=== PATIENT | female | born 1980 | race Caucasian/White ===

== ENCOUNTER 2020-02-19 07:53 | Emergency (ER) | payer OTHER ==
[2020-02-19 07:59] VITALS: BP 143/95; PULSE 83
--- NOTE | 2020-02-19 08:49 | EDM.PDOC ---
ED HPI GENERAL MEDICAL PROBLEM - General Chief Complaint: General Stated Complaint: hernia with left back of leg pain/tingling Time Seen by Provider: 02/19/20 08:30 Source of Information: Reports: Patient History Limitations: Reports: No Limitations - History of Present Illness INITIAL COMMENTS - FREE TEXT/NARRATIVE: She presents to the emergency department complaining of tingling in the back of her left leg, mainly in the thigh. At times extends beyond the knee. She does feel some stiffness and aching pain in the back of the left leg as well. She reports the leg feels heavy compared to the right side. No pain in her lower back. Symptoms started yesterday. No injury that she is aware of. No recent activity change. She does have a left lower abdominal hernia which will require repair, but she is unable to do that now since it is felt to be elective. No fever or chills. No dizziness or lightheadedness. No chest pain or tightness. Left Posterior Thigh Pain Score (Numeric/FACES): 3 - Related Data Allergies Allergy/AdvReac Type Severity Reaction Status Date / Time No Known Allergies Allergy Verified 02/19/20 10:30 Home Meds: Home Meds Albuterol [Take Home: Albuterol 18 GM, 1 INH Pack] 2 puff INH Q4HR PRN 02/19/20 [History] Past Medical History Gastrointestinal History: Reports: Other (See Below) Other Gastrointestinal History: LLQ hernia - Past Surgical History HEENT Surgical History: Reports: Tonsillectomy, Other (See Below) Other HEENT Surgeries/Procedures: wisdom teeth extraction Social & Family History - Tobacco Use Smoking Status *Q: Never Smoker - Recreational Drug Use Recreational Drug Use: No ED ROS GENERAL - Review of Systems Review Of Systems: See Below Constitutional: Denies: Fever, Chills HEENT: Denies: Eye Pain, Hearing Loss, Nose Pain, Sinus Problem, Throat Pain Respiratory: Denies: Shortness of Breath, Cough Cardiovascular: Denies: Chest Pain, Lightheadedness, Palpitations Endocrine: Denies: Fatigue GI/Abdominal: Reports: Abdominal Pain (Mild pain in the left lower quadrant.). Denies: Diarrhea, Nausea, Vomiting : Denies: Dysuria, Frequency, Urgency Musculoskeletal: Reports: Leg Pain. Denies: Back Pain Skin: Denies: Rash Neurological: Reports: Numbness, Tingling. Denies: Confusion, Dizziness, Headache Psychiatric: Denies: Agitation, Anxiety ED EXAM, GENERAL - Physical Exam Exam: See Below Exam Limited By: No Limitations General Appearance: Alert, WD/WN, No Apparent Distress Respiratory/Chest: Lungs Clear, Normal Breath Sounds, No Accessory Muscle Use Cardiovascular: Regular Rate, Rhythm, No Murmur GI/Abdominal: Normal Bowel Sounds, Soft, No Organomegaly, No Mass, Tender (Mild tenderness in the left lower quadrant.) Back Exam: Normal Inspection, Full Range of Motion (Mild pain and forward flexion.), Muscle Spasm (Mild diffuse tightness in the left paralumbar muscle), Other (She does give pain with left straight leg raise. Normal toe lift and heel walk.) Extremities: Normal Inspection, Normal Range of Motion, Non-Tender, No Pedal Edema Neurological: Alert, Oriented Skin Exam: Warm, Dry Course - Vital Signs Last Recorded V/S: Last Vital Signs Temp 36.6 C 02/19/20 07:58 Pulse 83 02/19/20 07:58 Resp 16 02/19/20 07:58 BP 143/95 H 02/19/20 07:58 Pulse Ox 99 02/19/20 07:58 - Orders/Labs/Meds Orders: Active Orders 24 hr Category Date Time Status Lumbar Spine 2 or 3V [CR] Stat Exams 02/19/20 08:10 Taken Departure - Departure Time of Disposition: 08:46 Disposition: Home, Self-Care 01 Condition: Good Clinical Impression: Acute left lumbar radiculopathy - Discharge Information *PRESCRIPTION DRUG MONITORING PROGRAM REVIEWED*: No *COPY OF PRESCRIPTION DRUG MONITORING REPORT IN PATIENT HANNAH: No Instructions: Lumbosacral Radiculopathy Referrals: PCP,None [Primary Care Provider] - Forms: ED Department Discharge Additional Instructions: Lumbar stretches at least twice daily. Ice the lower back for 15 minutes 3-4 times daily. Cyclobenzaprine 10 mg. 1 tablet 3 times daily for 5 days. Aleve 2 tablets twice daily for 5 days. Take with food. Follow-up in clinic if not improving over the next week. Sepsis Event Note - Evaluation Sepsis Screening Result: No Definite Risk - Focused Exam Date Exam was Performed: 02/20/20 Time Exam was Performed: 00:21 - Problem List Review Problem List Initiated/Reviewed/Updated: Yes - My Orders Last 24 Hours: My Active Orders 02/19/20 08:10 Lumbar Spine 2 or 3V [CR] Stat - Assessment/Plan Last 24 Hours: My Active Orders 02/19/20 08:10 Lumbar Spine 2 or 3V [CR] Stat Plan: Discussed findings and treatment options. No indication that the numbness is related to her abdominal hernia. Lumbar stretches at least twice daily. Ice the lower back for 15 minutes 3-4 times daily. Cyclobenzaprine 10 mg. 1 tablet 3 times daily for 5 days. Aleve 2 tablets twice daily for 5 days. Take with food. Follow-up in clinic if not improving over the next week.
== END 2020-02-19 09:00 | disposition home or self-care (01) ==
LOC: LL.ED 07:53
DX: M54.16 Radiculopathy, lumbar region (principal)
CPT/HCPCS: 72100; 99283-25

== ENCOUNTER 2020-02-28 05:40 | Observation (INO) | payer OTHER ==
[2020-02-28] MEDS ORDERED: Sodium Chloride 0.9% 10 ML Syringe FLUSH PRN ×2 (06:23→08:07)
[2020-02-28] MEDS ORDERED: Famotidine 20 MG/2 ML SDV IVPUSH ONE (06:23)
--- NOTE | 2020-02-28 06:23 | EDM.PDOC ---
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 (4) Mixed anxiety depressive disorder SNOMED Code(s): 549441356 Code(s): F41.8 - OTHER SPECIFIED ANXIETY DISORDERS Status: Chronic Priority: Medium Current Visit: Yes Onset Date: ~02/28/20 Annotation/ Comment:: Moderate anxious affect based on today's exam with no current medical therapy. Observe for now. Note history of tension headaches. - Problem List Review Problem List Initiated/Reviewed/Updated: Yes - My Orders Last 24 Hours: My Active Orders 02/28/20 06:23 Cardiac Monitoring [RC] . DIRECTED EKG Documentation Completion [RC] ASDIRECTED Oxygen Therapy, ED [RC] PRN Peripheral IV Care [RC] . DIRECTED Pulse Oximetry [RC] CONTINUOUS Up With Assistance [RC] PFP Vital Signs [RC] PFP Chest 1V Frontal [CR] Stat Sodium Chloride 0.9% [Saline Flush] 10 ml FLUSH ASDIRECTED PRN Obtain Past Medical Record [OM.PC] Urgent Peripheral IV Insertion Adult [OM.PC] Stat Resuscitation Status Stat EKG 12 Lead [EK] Stat 02/28/20 Breakfast Nothing per Oral Now Diet [DIET] - Assessment/Plan Admission H&P: Please use this note as an admission H&P Last 24 Hours: My Active Orders 02/28/20 06:23 Cardiac Monitoring [RC] . DIRECTED EKG Documentation Completion [RC] ASDIRECTED Oxygen Therapy, ED [RC] PRN Peripheral IV Care [RC] . DIRECTED Pulse Oximetry [RC] CONTINUOUS Up With Assistance [RC] PFP Vital Signs [RC] PFP Chest 1V Frontal [CR] Stat Sodium Chloride 0.9% [Saline Flush] 10 ml FLUSH ASDIRECTED PRN Obtain Past Medical Record [OM.PC] Urgent Peripheral IV Insertion Adult [OM.PC] Stat Resuscitation Status Stat EKG 12 Lead [EK] Stat 02/28/20 Breakfast Nothing per Oral Now Diet [DIET] Assessment:: As above Plan: As above. Extensive precautions were given to the patient, who is in agreement with the treatment plan. The patient's condition is stable enough for observation status and general supervision.
[2020-02-28 07:19] LABS: HEMOGLOBIN A1C 5.3 % (4.3-5.7)
[2020-02-28 07:28] LABS: PTT,PARTIAL THROMBOPLSTIN TIME 23.4 SEC (24.5-32.8)
[2020-02-28 07:45] LABS: CHLORIDE,CL 104 mmol/L (98-107); SODIUM,NA 140 mmol/L (136-145)
[2020-02-28] MEDS ORDERED: NORETHINDRONE PO SCH (08:04)
[2020-02-28] MEDS ORDERED: Temazepam 15 MG Cap PO PRN (08:07)
[2020-02-28] MEDS ORDERED: Acetaminophen 325 MG Tab PO PRN (08:07)
[2020-02-29 07:41] LABS: CHLORIDE,CL 106 mmol/L (98-107); SODIUM,NA 141 mmol/L (136-145)
--- NOTE | 2020-02-29 09:28 | PCM.DCSUM1 ---
Discharge Summary - Hospital Course Brief History: Admitted to observation due to complaints of intermittent tachycardia/SOB. Serial troponins. Cardiac monitoring. Diagnosis: Stroke: No - Discharge Data Discharge Date: 02/29/20 Discharge Disposition: Home, Self-Care 01 Condition: Stable - Referral to Home Health Primary Care Physician: Natalya Perry PA-C - Discharge Diagnosis/Problem(s) (1) Tachycardia SNOMED Code(s): 7355908 ICD Code: R00.0 - TACHYCARDIA, UNSPECIFIED Status: Acute Priority: High Current Visit: Yes Onset Date: ~02/23/20 Problem Details: Complaint of intermittent elevated/pounding heart rate with associated SOB over last few days. Accomanied by diaphoresis/chills prior to coming to ER. Secondary to frequency of arrhythmia and duration of her symptoms patient placed in observation status with initiation of standard rule out [place] orders. Serial troponins negative. Unremarkable telemetry. No recurrence of symptoms noted during stay. Patient was advised to decrease her caffeine intake and avoid decongestants. Consider viral etiology given chills as illness can also be a cause of elevated heart rate. Does not appear to be associated with any feeling of increased anxiety per patient, thus less likely related to panic disorder. Patient is being set up for an event monitor by [facility] to more further rule out cardiac pathology. May need referral to Cardiology depending on clinical course (2) Allergic rhinitis SNOMED Code(s): 38846279 ICD Code: J30.9 - ALLERGIC RHINITIS, UNSPECIFIED Status: Chronic Priority : Medium Current Visit: Yes Problem Details: Note recent OTC preparations. Hx bronchitis last November and given inhaler for this. Patient did use this inhaler several times for her sensation of SOB this past week and did feel that it gave her improvement. Qualifiers: Allergic rhinitis trigger: pollen Allergic rhinitis seasonality: seasonal Qualified Code(s): J30.1 - Allergic rhinitis due to pollen (3) Asthma SNOMED Code(s): 423666443 ICD Code: J45.909 - UNSPECIFIED ASTHMA, UNCOMPLICATED Status: Chronic Priority: Medium Current Visit: Yes Problem Details: Reactive airway disease as above. Qualifiers: Asthma severity: mild Asthma persistence: intermittent Asthma complication type: uncomplicated Qualified Code(s): J45.20 - Mild intermittent asthma, uncomplicated (4) Mixed anxiety depressive disorder SNOMED Code(s): 536553413 ICD Code: F41.8 - OTHER SPECIFIED ANXIETY DISORDERS Status: Chronic Priority: Medium Current Visit: Yes Onset Date: ~02/28/20 Problem Details : Moderate anxious affect based on ER exam. Denies panic/feelings of anxiety accompanying her episodes of elevated heart rate/SOB. - Patient Summary/Data Recommended Follow-up Testing/Procedures: Cardiac event monitor through [facility]. Covid-19 testing today Hospital Course: Unremarkable hospital course. Negative troponins. No recurrence of symptoms that led her to present to ER. Given Restoril last night and she reports having first good night's sleep in 5 days. Had insomnia that accompanied the tachycardic/SOB over the previous 4 nights. No obvious URI complaints such as sore throat/congestion/cough. No fevers. No GI changes. Cannot rule out illness such as virus causing the pattern of tachycardia/SOB complaints. She did have episode of feeling hot/chilled/sweaty. Also cannot rule out allergies contributing as she does have reasonably significant seasonal and mold allergies per self report. Will test her for Covid 19 prior to discharge. She is to self quarantine at home while awaiting results. [facility] clinic is setting up patient for Holter/event monitor to more closely evaluate tachycardia complaint. May need Cardiology referral depending on symptoms/ clinical course. Precautions reviewed with patient. Differential diagnoses reviewed with patient. She is agreeable with plan. OK to discharge home. - Patient Instructions Diet: Usual Diet as Tolerated Activity: As Tolerated Showering/Bathing: May Shower Other/Special Instructions: Observe for recurrence of symptoms/new symptoms. Follow up as needed if you have problems. Otherwise quarantine at home while we are waiting for Covid-[address] [facility] will be sending you the cardiac event monitor as we discussed to more closely evaluate you heart rate complaints. Follow up closely with them until these symptos get sorted out. - Discharge Plan *PRESCRIPTION DRUG MONITORING PROGRAM REVIEWED*: Not Applicable *COPY OF PRESCRIPTION DRUG MONITORING REPORT IN PATIENT HANNAH: Not Applicable Home Medications: Home Meds Albuterol [Take Home: Albuterol 18 GM, 1 INH Pack] 2 puff INH Q4HR PRN 02/19/20 [History] Cranberry Fruit Extract [Cranberry] 500 mg PO DAILY 02/28/20 [History] Multivitamin [Multi-Vitamin Daily] 1 each PO DAILY 02/28/20 [History] Naproxen Sodium [Aleve] 220 mg PO ASDIRECTED PRN 02/28/20 [History] Norethindrone 1 tab PO DAILY 02/28/20 [History] Forms: ED Department Discharge Referrals: Natalya Perry PA-C [Primary Care Provider] - - Discharge Summary/Plan Comment DC Time >30 min.: No - General Info Date of Service: 02/29/20 Admission Dx/Problem (Free Text: Intermittent tachycardia/SOB Subjective Update: Patient feels back to usual self today. Functional Status: Reports: Pain Controlled, Tolerating Diet, Ambulating, Urinating. Denies: New Symptoms Numeric/FACES Score: 0 - Review of Systems General: Reports: No Symptoms HEENT: Reports: No Symptoms Pulmonary: Reports: No Symptoms Cardiovascular: Reports: No Symptoms Gastrointestinal: Reports: No Symptoms Genitourinary: Reports: No Symptoms Musculoskeletal: Reports: No Symptoms (no acute changes from baseline) Skin: Reports: No Symptoms Neurological: Reports: No Symptoms Psychiatric: Reports: No Symptoms - Patient Data Vitals - Most Recent: Last Vital Signs Temp 36.5 C 02/29/20 07:22 Pulse 85 02/29/20 07:22 Resp 16 02/29/20 07:22 BP 109/69 02/29/20 07:22 Pulse Ox 99 02/29/20 07:22 Weight - Most Recent: 80.603 kg I&O - Last 24 hours: Intake & Output 02/28/20 02/29/20 02/29/20 22:59 06:59 14:59 Intake Total 970 300 200 Output Total 200 200 Balance 770 100 200 Lab Results - Last 24 hrs: Laboratory Results - last 24 hr 02/28/20 02/28/20 02/29/20 Range/Units 11:55 17:33 07:11 WBC 6.2 (4.0-10.2) K/uL RBC 4.41 (3.77-5.09) M/uL Hgb 12.8 (11.7-15.5) g/dL Hct 38.6 (34.0-46.0) % MCV 87.5 (84.0-98.0) fL MCH 29.0 (28.2-33.3) pg MCHC 33.2 (31.7-36.0) g/dL RDW 14.9 H (11.2-14.1) % Plt Count 274 (150-350) K/uL Neut % (Auto) 53.7 (45.0-80.0) % Lymph % (Auto) 33.8 (10.0-50.0) % [place] % (Auto) 9.9 (2.0-14.0) % Eos % (Auto) 2.1 (0.0-5.0) % Baso % (Auto) 0.5 (0.0-2.0) % Neut # (Auto) 3.30 (1.40-7.00) K/uL Lymph # (Auto) 2.08 (0.50-3.50) K/uL [place] # (Auto) 0.61 (0.00-1.00) K/uL Eos # (Auto) 0.13 (0.00-0.50) K/uL Baso # (Auto) 0.03 (0.00-0.20) K/uL Sodium (136-145) mmol/L Potassium (3.5-5.1) mmol/L Chloride (98-107) mmol/L Carbon Dioxide (21.0-32.0) mmol/L BUN (7-18) mg/dL Creatinine (0.51-1.17) mg/dL Est Cr Clr Drug Dosing mL/min Estimated GFR (MDRD) mL/min Glucose (74-106) mg/dL Calcium (8.5-10.1) mg/dL Total Bilirubin (0.2-1.0) mg/dL AST (15-37) U/L ALT (12-78) U/L Alkaline Phosphatase (46-116) IU/L Creatine Kinase 95 92 (26-308) U/L Creatine Kinase Index 0.5 0.3 (0.0-2.5) % CK-MB (CK-2) 0.50 0.30 (0.00-3.60) ng/mL Troponin I 0.000 0.000 (0.000-0.056) ng/mL Total Protein (6.4-8.2) g/dL Albumin (3.4-5.0) g/dL 02/29/20 Range/Units 07:11 WBC (4.0-10.2) K/uL RBC (3.77-5.09) M/uL Hgb (11.7-15.5) g/dL Hct (34.0-46.0) % MCV (84.0-98.0) fL MCH (28.2-33.3) pg MCHC (31.7-36.0) g/dL RDW (11.2-14.1) % Plt Count (150-350) K/uL Neut % (Auto) (45.0-80.0) % Lymph % (Auto) (10.0-50.0) % [place] % (Auto) (2.0-14.0) % Eos % (Auto) (0.0-5.0) % Baso % (Auto) (0.0-2.0) % Neut # (Auto) (1.40-7.00) K/uL Lymph # (Auto) (0.50-3.50) K/uL [place] # (Auto) (0.00-1.00) K/uL Eos # (Auto) (0.00-0.50) K/uL Baso # (Auto) (0.00-0.20) K/uL Sodium 141 (136-145) mmol/L Potassium 3.8 (3.5-5.1) mmol/L Chloride 106 (98-107) mmol/L Carbon Dioxide 25.8 (21.0-32.0) mmol/L BUN 9 (7-18) mg/dL Creatinine 0.68 (0.51-1.17) mg/dL Est Cr Clr Drug Dosing 106.94 mL/min Estimated GFR (MDRD) > 60 mL/min Glucose 110 H (74-106) mg/dL Calcium 8.6 (8.5-10.1) mg/dL Total Bilirubin 0.6 (0.2-1.0) mg/dL AST 11 L (15-37) U/L ALT 23 (12-78) U/L Alkaline Phosphatase 74 (46-116) IU/L Creatine Kinase 76 (26-308) U/L Creatine Kinase Index 0.5 (0.0-2.5) % CK-MB (CK-2) 0.40 (0.00-3.60) ng/mL Troponin I 0.000 (0.000-0.056) ng/mL Total Protein 6.8 (6.4-8.2) g/dL Albumin 3.5 (3.4-5.0) g/dL Med Orders - Current: Current Medications Acetaminophen (Tylenol) 650 mg PO Q4H PRN PRN Reason: Pain Last Admin: 02/28/20 19:54 Dose: 650 mg Non-Formulary Medication (Norethindrone [Norethindrone]) 1 tab PO DAILY LILLIE Sodium Chloride (Saline Flush) 10 ml FLUSH ASDIRECTED PRN PRN Reason: Keep Vein Open Last Admin: 02/28/20 07:13 Dose: 10 ml Sodium Chloride (Saline Flush) 10 ml FLUSH Q12HR PRN PRN Reason: Keep Vein Open Temazepam (Restoril) 15 mg PO BEDTIME PRN PRN Reason: Insomnia Last Admin: 02/28/20 22:30 Dose: 15 mg Discontinued Medications Famotidine (Pepcid) 40 mg IVPUSH ONETIME ONE Stop: 02/28/20 06:24 Last Admin: 02/28/20 07:13 Dose: 40 mg - Exam General: Reports: Alert, Oriented, Cooperative, No Acute Distress HEENT: Reports: Pupils Equal, Pupils Reactive, EOMI, Mucous Membr. Moist/[place] Neck: Reports: Supple Lungs: Reports: Clear to Auscultation, Normal Respiratory Effort Cardiovascular: Reports: Regular Rhythm, Bradycardia GI/Abdominal Exam: Normal Bowel Sounds, Soft, Non-Tender, No Distention (Female) Exam: Deferred Rectal (Female) Exam: Deferred Back Exam: Reports: Normal Inspection Extremities: Normal Inspection Skin: Reports: Warm, Dry, Intact Neurological: Reports: No New Focal Deficit Psy/Mental Status: Reports: Alert, Normal Affect, Normal Mood EKG INTERPRETATION EKG Date: 02/29/20 Time: 07:20 Rhythm: NSR Rate (Beats/Min): 63 [place]: Normal P-Wave: Present QRS: Normal ST-T: Normal QT: Normal
== END 2020-02-29 10:35 | disposition home or self-care (01) ==
LOC: LL.ED 05:40 → LL.MS 07:56 → UNDOADMOB 07:56 → LL.MS 08:01
PROVIDERS: ADMIT Family Medicine; ATTEND Family Medicine
DX: R00.0 Tachycardia, unspecified (principal); J45.20 Mild intermittent asthma, uncomplicated; F41.8 Other specified anxiety disorders; Z79.899 Other long term (current) drug therapy
CPT/HCPCS: 36415; 71045; 80053; 80061; 82550; 82553; 83036; 83605; 83735; 83880; 84443; 84484; 84550; 84703; 85025; 85379; 85610; 85730; 93005; 93010; 96374; 99217; 99219; 99285-25; A9270-GY; G0378; J3490; U0002

== ENCOUNTER 2020-05-17 08:01 | Day surgery (SDC) | payer OTHER ==
[2020-05-17] MEDS ORDERED: Sodium Chloride 0.9% 10 ML Syringe FLUSH PRN (08:24)
[2020-05-17] MEDS ORDERED: Midazolam 1 MG/ML 2 ML SDV ONE ×2 (08:25→09:04)
[2020-05-17] MEDS ORDERED: Propofol 200 MG/20 ML SDV ONE ×2 (08:26→09:04)
[2020-05-17] MEDS ORDERED: fentaNYL 250 MCG/5 ML SDV ONE ×2 (08:26→09:04)
[2020-05-17] MEDS ORDERED: Lactated Ringers 1,000 ML IV SCH (08:30)
[2020-05-17] MEDS ORDERED: Ondansetron 4 MG/2 ML SDV ONE (09:04)
[2020-05-17] MEDS ORDERED: ePHEDrine 50 MG/ML SDV ONE (09:04)
[2020-05-17] MEDS ORDERED: ceFAZolin 1 GM Vial ONE ×2 (09:04→10:06)
[2020-05-17] MEDS ORDERED: Rocuronium 100 MG/10 ML MDV ONE (09:04)
[2020-05-17] MEDS ORDERED: Glycopyrrolate 0.2 MG/ML SDV ONE ×2 (09:04)
[2020-05-17] MEDS ORDERED: Succinylcholine 200 MG/10 ML MDV ONE (09:04)
[2020-05-17] MEDS ORDERED: Neostigmine Methylsulfate 10 MG/10 ML MDV ONE (09:04)
[2020-05-17] MEDS ORDERED: Ketorolac 30 MG/ML SDV ONE (09:04)
[2020-05-17] MEDS ORDERED: Dexamethasone 10 MG/ML SDV ONE (09:04)
--- NOTE | 2020-05-17 09:12 | PCM.PN ---
- General Info Date of Service: 05/17/20 - Review of Systems Systems Review Comment:: 39-year-old female with left inguinal hernia here for repair of left inguinal hernia. She is medically stable to proceed today. Her recent history and physical is reviewed and no significant changes are noted. She reports that some heart irregularity that she was experiencing is now stabilized with medication. She has been having some increasing pain and size of the inguinal hernia. I have again discussed the proposed operative repair with the patient. She agrees to proceed excepting risks. The site is confirmed with the patient and marked. - Patient Data Vitals - Most Recent: Last Vital Signs Temp 98.2 F 05/17/20 08:29 Pulse 60 05/17/20 08:29 Resp 12 05/17/20 08:29 BP 113/69 05/17/20 08:29 Pulse Ox 100 05/17/20 08:29 Weight - Most Recent: 83.007 kg Lab Results Last 24 Hours: Laboratory Results - last 24 hr 05/17/20 Range/Units 08:40 HCG, Qual Negative (NEGATIVE) Med Orders - Current: Current Medications Lactated Ringer's (Ringers, Lactated) 1,000 mls @ 125 mls/hr IV ASDIRECTED LILLIE Last Admin: 05/17/20 08:50 Dose: 125 mls/hr Documented by: Sodium Chloride (Saline Flush) 10 ml FLUSH ASDIRECTED PRN PRN Reason: Keep Vein Open Discontinued Medications Fentanyl (Sublimaze) Confirm Administered Dose 250 mcg .ROUTE .STK-MED ONE Stop: 05/17/20 08:27 Midazolam HCl (Versed 1 Mg/Ml) Confirm Administered Dose 2 mg .ROUTE .STK-MED ONE Stop: 05/17/20 08:26 Propofol (Diprivan 20 Ml) Confirm Administered Dose 200 mg .ROUTE .STK-MED ONE Stop: 05/17/20 08:27 Sepsis Event Note - Focused Exam Vital Signs: Vital Signs Temp Pulse Resp BP Pulse Ox 05/17/20 08:29 98.2 F 60 12 113/69 100 Date Exam was Performed: 05/17/20 Time Exam was Performed: 09:10 - Problem List Review Problem List Initiated/Reviewed/Updated: Yes - My Orders Last 24 Hours: My Active Orders 05/17/20 08:00 Admission Status [Patient Status] [ADT] Routine 05/17/20 08:23 Antiembolic Devices [RC] .Routine 05/17/20 08:24 Verify Patient Consent Obtain [RC] ASDIRECTED Sodium Chloride 0.9% [Saline Flush] 10 ml FLUSH ASDIRECTED PRN Saline Lock Insert [OM.PC] Routine 05/17/20 08:30 Lactated Ringers [Ringers, Lactated] 1,000 ml IV ASDIRECTED 05/17/20 Lunch NPO [Nothing Per Oral Diet] [DIET] - Assessment Assessment:: Left inguinal hernia - Plan Plan:: Left inguinal hernia repair with mesh
[2020-05-17] MEDS ORDERED: Bupivacaine 0.5%/EPINEPHrine 1:200,000 30 ML SDV INFILT ONE (09:24)
--- NOTE | 2020-05-17 11:15 | PCM.OPNOTE ---
- General Post-Op/Procedure Note Date of Surgery/Procedure: 05/17/20 Operative Procedure(s): Left inguinal hernia repair with mesh Findings: Large indirect left inguinal hernia Pre Op Diagnosis: Left inguinal hernia Post-Op Diagnosis: Left indirect inguinal hernia Anesthesia Technique: General ET Tube Primary Surgeon: Rohith Abraham Pathology: Left inguinal hernia sac EBL in mLs: 20 Complications: None Condition: Good
--- NOTE | 2020-05-17 13:29 | OR ---
Date of Procedure: 05/17/2020 PREOPERATIVE DIAGNOSIS: Left inguinal hernia. POSTOPERATIVE DIAGNOSIS: Left indirect inguinal hernia. TEST PERFORMED: Left inguinal hernia repair with mesh. INDICATIONS FOR SURGERY: This 39-year-old female has developed a bulge in her left groin consistent with a left inguinal hernia. This is increasing in size and symptoms, and she comes for an elective repair. FINDINGS: In the left groin, the patient has a large indirect inguinal hernia. The sac is thin and large extending down almost to the pubic tubercle. The sac is empty. The round ligament is thick and heavily scarred to the hernia sac and adjacent structures. PROCEDURE IN DETAIL: The patient was taken to the operating room. She was given general endotracheal anesthesia. The left groin was sterilely prepped and draped. A linear left groin incision was made, carried down to the external oblique fascia which was incised opening the external ring. The round ligament was carefully mobilized and eventually able to be isolated from the surrounding structures. Exploration in the region of the round ligament was carried out and eventually the large thin-walled hernia sac was identified. The sac was opened and a careful persistent dissection was used to free the sac from the round ligament and adjacent structures. This dissection was carried out proximally until the sac was freed down to the internal ring. At this point, with the sac empty, it was rotated on its own axis and suture-ligated at the level of the internal ring with 2-0 Vicryl. A reinforcing tie of 2-0 Vicryl was placed and the sac was amputated distal to these ties. The most distal aspect of the sac was left in situ as it was firmly adherent to the area of the round ligament. As noted, the round ligament was quite thick and it was decided rather than divide and remove this to simply leave it in situ. Reinforcement of the floor of the inguinal canal was then carried out by securing a large size keyhole- shaped piece of polypropylene mesh covering the Hesselbach's triangle. The inferior edge of the mesh was secured down to the Richard's ligament, medial to the femoral vessels, and the shelving portion of the inguinal ligament anterior to these vessels with interrupted 0 Prolene sutures. The superior edge of the mesh was secured down to the internal oblique fascia near its fusion with the external oblique fascia also with interrupted 0 Prolene sutures. The round ligament was passed through the keyhole defect and the tails of the mesh were approximated laterally with interrupted 0 Prolene, recreating the internal ring such that it would admit one fingertip alongside the round ligament. The tails of the mesh were trimmed and laid into the space between the internal and external oblique fascia lateral to the internal ring. This created a secure reinforcement of the floor of the inguinal canal. With no sign of any complication, the wound was irrigated with Ancef and saline solution. This had also been used to soak the mesh prior to its placement. The external oblique fascia was re-approximated with a running 2-0 Vicryl recreating the external ring. The wound was infiltrated with Marcaine. The Alejo's fascia was approximated with interrupted 4-0 Vicryl and the skin was closed with a running 4-0 Vicryl subcuticular stitch. Steri-Strips and benzoin were applied. Antibiotic ointment and sterile dressing were placed. The patient was then awakened, extubated, and taken from the operating room in satisfactory condition. ESTIMATED BLOOD LOSS: 20 mL. COMPLICATIONS: None. PROGNOSIS: Good. GLO Abraham MD /[id number] MAN[place]AR
== END 2020-05-17 13:18 | disposition home or self-care (01) ==
LOC: LL.SDS 08:01
PROVIDERS: ATTEND Surgery
DX: K40.90 Unilateral inguinal hernia, without obstruction or gangrene, not specified as recurrent (principal); I10 Essential (primary) hypertension; Z79.899 Other long term (current) drug therapy
CPT/HCPCS: 00790; 36415; 84703; C1781; J0330; J0690; J1100; J1885; J2250; J2405; J2704; J2710; J3010; J3490; J7120

== ENCOUNTER 2022-06-05 07:56 | Day surgery (SDC) | payer OTHER ==
[~2022-06-05 07:56] MED LIST: Lactated Ringers 1,000 ML IV SCH; Sodium Chloride 0.9% 10 ML Syringe FLUSH PRN
[2022-06-05] MEDS ORDERED: Midazolam 1 MG/ML 2 ML SDV ONE (08:25)
[2022-06-05] MEDS ORDERED: Propofol 200 MG/20 ML SDV ONE (08:26)
[2022-06-05] MEDS ORDERED: Lidocaine 1% 5 ML VIAL INFILT ONE (09:31)
== END 2022-06-05 11:25 | disposition home or self-care (01) ==
LOC: LL.SDS 07:56
PROVIDERS: ATTEND Surgery
DX: M67.431 Ganglion, right wrist (principal); I10 Essential (primary) hypertension; I47.1 Supraventricular tachycardia; I25.10 Atherosclerotic heart disease of native coronary artery without angina pectoris; I48.91 Unspecified atrial fibrillation; M19.90 Unspecified osteoarthritis, unspecified site; E11.9 Type 2 diabetes mellitus without complications; J44.9 Chronic obstructive pulmonary disease, unspecified; E66.9 Obesity, unspecified; Z98.890 Other specified postprocedural states; Z95.1 Presence of aortocoronary bypass graft; Z68.28 Body mass index [BMI] 28.0-28.9, adult; Z91.040 Latex allergy status; Z79.83 Long term (current) use of bisphosphonates; Z79.899 Other long term (current) drug therapy; Z79.51 Long term (current) use of inhaled steroids
CPT/HCPCS: 01810; 81025; J2250; J2704; J7120

== ENCOUNTER 2024-08-02 22:51 | Emergency (ER) | payer OTHER ==
[2024-08-02] MEDS ORDERED: Sodium Chloride 0.9% 10 ML Syringe FLUSH PRN (22:55)
[2024-08-02] MEDS: Lactated Ringers 1,000 ML IV ONE (23:00)
[2024-08-02 23:11] LABS: BASOPHILS ABSOLUTE AUTO 0.04 K/uL (0.00-0.20); BASOPHILS PERCENT AUTO 0.5 % (0.0-2.0); EOSINOPHILS ABSOLUTE AUTO 0.18 K/uL (0.00-0.50); EOSINOPHILS PERCENT AUTO 2.2 % (0.0-5.0); HEMATOCRIT 38.2 % (34.0-46.0); HEMOGLOBIN 12.5 g/dL (11.7-15.5); LYMPHOCYTES ABSOLUTE AUTO 2.68 K/uL (0.50-3.50); LYMPHOCYTES PERCENT AUTO 32.9 % (10.0-50.0); MEAN CORPUSCULAR HGB CONC 32.7 g/dL (31.7-36.0); MEAN CORPUSCULAR VOLUME 88.6 fL (84.0-98.0); MONOCYTES ABSOLUTE AUTO 0.78 K/uL (0.00-1.00); MONOCYTES PERCENT AUTO 9.6 % (2.0-14.0); NEUTROPHILS ABSOLUTE AUTO 4.47 K/uL (1.40-7.00); NEUTROPHILS PERCENT AUTO 54.8 % (45.0-80.0); PLATELET COUNT,PLT 351 K/uL (150-350); RED BLOOD CELL COUNT 4.31 M/uL (3.77-5.09); RED CELL DISTRIBUTION WIDTH 12.8 % (11.2-14.1); WHITE BLOOD CELL COUNT,WBC 8.2 K/uL (4.0-10.2)
[2024-08-02 23:25] LABS: PROTHROMBIN TIME 9.8 SEC (9.0-11.1)
[2024-08-02 23:35] LABS: ALANINE AMINOTRANSFERASE,ALT 29 U/L (12-78); ALBUMIN 3.6 g/dL (3.4-5.0); ALKALINE PHOSPHATASE 89 IU/L (46-116); ANION GAP 6.8 meq/L (7-15); ASPARTATE AMNIOTRANSFERASE,AST 15 U/L (15-37); BILIRUBIN TOTAL 0.2 mg/dL (0.2-1.0); BLOOD UREA NITROGEN,BUN 12 mg/dL (7-18); CARBON DIOXIDE,CO2 28.2 mmol/L (21.0-32.0); CHLORIDE,CL 102 mmol/L (98-107); CREATININE 0.82 mg/dL (0.51-1.17); ESTIMATED GFR 90 mL/min (>=60); GLUCOSE RANDOM 120 mg/dL (70-99); MAGNESIUM 1.9 mg/dL (1.8-2.4); POTASSIUM,K 3.5 mmol/L (3.5-5.1); PRO B-TYPE NATRIUR PEPT,BNPPRO 73 pg/mL (0-125); PROTEIN TOTAL,TP 7.5 g/dL (6.4-8.2); SODIUM,NA 137 mmol/L (136-145)
== END 2024-08-03 00:10 | disposition home or self-care (01) ==
LOC: LL.ED 22:51
DX: F10.120 Alcohol abuse with intoxication, uncomplicated (principal); R55 Syncope and collapse; I10 Essential (primary) hypertension; Y90.9 Presence of alcohol in blood, level not specified; Z88.0 Allergy status to penicillin
CPT/HCPCS: 36415; 80053; 83735; 83880; 84484; 85025; 85610; 93005; 93010; 96360; 99284; 99284-25; J7120